=== PATIENT | male | born 1985 | race Caucasian/White ===

== ENCOUNTER 2019-07-13 17:23 | Emergency (ER) | payer SELFPAY ==
[~2019-07-13] VITALS: Ht 180.3 cm; Wt 86.4 kg
[2019-07-13 17:30] VITALS: TEMP 97.5
[2019-07-13] MEDS ORDERED: AMOXICILLIN 8751 TAB PO (18:58)
[2019-07-13 19:34] VITALS: BP 138/92; PULSE 84
== END 2019-07-13 19:34 | disposition home or self-care (01) ==
LOC: COL.ER 17:23
DX: S51.852A Open bite of left forearm, initial encounter (principal); Z23 Encounter for immunization; W54.0XXA Bitten by dog, initial encounter; Y92.009 Unspecified place in unspecified non-institutional (private) residence as the place of occurrence of the external cause

== ENCOUNTER 2019-07-27 12:30 | Emergency (ER) | payer SELFPAY ==
[~2019-07-27 12:30] MED LIST: AMOXICILLIN 8751 TAB PO
[2019-07-27 13:17] VITALS: BP 130/84; PULSE 92; TEMP 98.9
== END 2019-07-27 13:24 | disposition home or self-care (01) ==
LOC: COL.ER 12:30
DX: S41.111D Laceration without foreign body of right upper arm, subsequent encounter (principal); X58.XXXD Exposure to other specified factors, subsequent encounter

== ENCOUNTER 2023-03-23 07:52 | Emergency (ER) | payer OTHER ==
[~2023-03-23] VITALS: Ht 180.3 cm; Wt 75.0 kg
[2023-03-23 07:55] VITALS: TEMP 97.9
[2023-03-23 09:14] VITALS: BP 130/77; PULSE 68
== END 2023-03-23 09:14 | disposition home or self-care (01) ==
LOC: COL.ER 07:52
DX: N50.9 Disorder of male genital organs, unspecified (principal); Z28.310 Unvaccinated for COVID-19